=== PATIENT | male | born 1985 | race American Indian/Alaskan Native ===

== ENCOUNTER 2017-09-05 12:56 | Emergency (ER) | payer MEDICAID ==
[2017-09-05 13:03] VITALS: RESP 18; BMI 18.1
--- NOTE | 2017-09-05 13:41 | ED PDOC ---
Arrival/HPI - General Chief Complaint: Headache Time Seen by Provider: 09/05/17 13:04 Historian: Patient EM Caveat: Acuity of Condition - History of Present Illness Narrative History of Present Illness (Text): 09/05/17 13:33 32 year old male, whose medical history includes GERD that is being medicated, presents to the Emergency department complaining of a headache for 2 days. 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 Patient states headache is worsened when he smokes and relieved when he rests. Patient notes that he was assessed by PMD, Dr. Adame, for left upper quadrant pain 2 days ago. An ultrasound was done to rule out renal stone; the results are not yet back. Patient states his headache began after the ultrasound. Patient also complains of neck and shoulder muscle tightness, described as a pressure rather than a pain, while at times he states that all the muscles in his body feel tight. Patient also complains of left ear tinnitus prior to onset of the headache. Patient denies any fever, chills, chest pain, shortness of breath, nausea, vomiting, diarrhea, vision changes, back pain, joint pain, or any other complaints. Time/Duration: < week (2 days) Symptom Onset: Sudden Symptom Course: Unchanged Severity Level: 1 Context: Home Past Medical History - Provider Review Nursing Documentation Reviewed: Yes - Travel History Have you recently traveled outside [place] w/in the past 3 mons?: No - Infectious Disease Hx of Infectious Diseases: None - Gastrointestinal Hx Gastroesophageal Reflux: Yes - Psychiatric Hx Substance Use: No - Surgical History Hx Musculoskeletal Surgery: Yes (Right middle finger) Family/Social History - Physician Review Nursing Documentation Reviewed: Yes Family/Social History: No Known Family HX Smoking Status: Heavy Smoker > 10 Cigarettes Daily Hx Alcohol Use: No Hx Substance Use: Yes (occasional marijuana use) Allergies/Home Meds Allergies/Adverse Reactions: Allergies No Known Allergies Allergy (Verified 09/05/17 13:05) Review of Systems - Physician Review All systems were reviewed & negative as marked: Yes - Review of Systems Constitutional: absent: Fevers, Night Sweats Eyes: absent: Vision Changes ENT: Tinnitus (left ear) Respiratory: absent: SOB Cardiovascular: absent: Chest Pain Gastrointestinal: absent: Diarrhea, Nausea, Vomiting Musculoskeletal: Other (muscle tightness/pressure primarily in neck and shoulders). absent: Back Pain Neurological: Headache Physical Exam Vital Signs Reviewed: Yes Vital Signs Temp Pulse Resp BP Pulse Ox 09/05/17 16:00 98.5 F 70 18 110/78 98 09/05/17 15:03 98.5 F 58 L 18 118/76 100 09/05/17 13:03 98.7 F 61 18 122/68 100 Temperature: Afebrile Blood Pressure: Normal Pulse: Regular Respiratory Rate: Normal Appearance: Positive for: Well-Appearing, Non-Toxic, Comfortable Pain Distress: None Mental Status: Positive for: Alert and Oriented X 3 - Systems Exam Head: Present: Atraumatic, Normocephalic Pupils: Present: PERRL Extroacular Muscles: Present: EOMI Conjunctiva: Present: Normal Mouth: Present: Moist Mucous Membranes Neck: Present: Paraspinal Tenderness (cervical region) Respiratory/Chest: Present: Clear to Auscultation, Good Air Exchange. No: Respiratory Distress, Accessory Muscle Use Cardiovascular: Present: Regular Rate and Rhythm, Normal S1, S2. No: Murmurs Abdomen: No: Tenderness, Distention, Peritoneal Signs Back: Present: Normal Inspection Upper Extremity: Present: Other (Hypersensitivity of upper trapezius). No: Edema Lower Extremity: Present: Normal Inspection. No: Edema Neurological: Present: GCS=15, CN II-XII Intact, Speech Normal Skin: Present: Warm, Dry, Normal Color. No: Rashes Psychiatric: Present: Alert, Oriented x 3, Normal Insight, Normal Concentration Medical Decision Making ED Course and Treatment: 09/05/17 13:46 Impression: 32 year old male presents to the Emergency department complaining of a headache , left ear tinnitus, and muscle tightness. Plan: -- Muscle relaxant -- Reassess and disposition Progress Notes: CT head: IMPRESSION: No acute findings Toradol 30 mg IM for tension headache Stable and ready for home 09/05/17 15:52 Cyclobenzaprine 5 mg prn - Lab Interpretations Lab Results: 09/05/17 14:20 09/05/17 14:20 Lab Results 09/05/17 14:20: Sodium 145, Potassium 4.0, Chloride 107, Carbon Dioxide 26, Anion Gap 15, BUN 16, Creatinine 0.8, Est GFR ( Amer) > 60, Est GFR (Non- Af Amer) > 60, Random Glucose 83, Calcium 9.5, Total Bilirubin 0.2, AST 28, ALT 27, Alkaline Phosphatase 45, Total Protein 7.5, Albumin 4.4, Globulin 3.0, Albumin/Globulin Ratio 1.5 09/05/17 14:20: Urine Color Yellow, Urine Appearance Clear, Urine pH 6.0, Ur Specific [place] 1.025, Urine Protein Negative, Urine Glucose (UA) Negative, Urine Ketones Negative, Urine Blood Negative, Urine Nitrate Negative, Urine Bilirubin Negative, Urine Urobilinogen 0.2, Ur Leukocyte Esterase Negative 09/05/17 14:20: WBC 7.0, RBC 4.16, Hgb 12.9 L, Hct 38.3 L, MCV 92.1, MCH 31.0, MCHC 33.7, RDW 12.1, Plt Count 219, MPV 9.0, Gran % 60.4, Lymph % (Auto) 33.6, [place] % (Auto) 4.7, Eos % (Auto) 0.7 L, Baso % (Auto) 0.6, Gran # 4.20, Lymph # ( Auto) 2.3, Kern # (Auto) 0.3, Eos # (Auto) 0.1, Baso # (Auto) 0.04 - RAD Interpretation Radiology Orders: 09/05/17 14:04 HEAD W/O CONTRAST [CT] Stat - Medication Orders Current Medication Orders: Discontinued Medications Ketorolac Tromethamine (Toradol) 30 mg IM STAT STA Stop: 09/05/17 15:54 Last Admin: 09/05/17 16:15 Dose: Not Given Non-Admin Reason: Patient Refused - Scribe Statement The provider has reviewed the documentation as recorded by the Thang Uribe Provider Scribe Attestation: All medical record entries made by the Scottibdeangelo were at my direction and personally dictated by me. I have reviewed the chart and agree that the record accurately reflects my personal performance of the history, physical exam, medical decision making, and the department course for this patient. I have also personally directed, reviewed, and agree with the discharge instructions and disposition. Disposition/Present on Arrival - Present on Arrival Any Indicators Present on Arrival: Yes History of DVT/PE: No History of Uncontrolled Diabetes: No Urinary Catheter: No History of Decub. Ulcer: No History Surgical Site Infection Following: None - Disposition Have Diagnosis and Disposition been Completed?: Yes Diagnosis: Tension type headache, unspecified, Muscle tension headache Disposition: HOME/ ROUTINE Disposition Time: 15:54 Patient Plan: Discharge Condition: GOOD Discharge Instructions (ExitCare): Tension Headache Additional Instructions: Clara, thank you for letting us take care of you today. Your provider was EDWIN Villagomez. You were treated for Tension Headache. The emergency medical care you received today was directed at your acute symptoms. If you were prescribed any medication, please fill it and take as directed. It may take several days for your symptoms to resolve. Return to the Emergency Department if your symptoms worsen, do not improve, or if you have any other problems. Please contact your doctor or call one of the physicians/clinics you have been referred to that are listed on the Patient Visit Information form that is included in your discharge packet. Bring any paperwork you were given at discharge with you along with any medications you are taking to your follow up visit. Our treatment cannot replace ongoing medical care by a primary care provider (PCP) outside of the emergency department. Thank you for allowing the [facility] team to be part of your care today. If you had an X-Ray or CT scan: A Radiologist will review the ED reading if any change in treatment is needed we will contact you. If you had a blood, urine, or wound culture: It will take several days for the results, if any change in treatment is needed we will contact you. Prescriptions: Cyclobenzaprine [Flexeril] 5 mg PO Q8 5 Days #15 tab Referrals: Carrie Adame [Primary Care Provider] - Follow up with primary Forms: [employer] (E[place]ian), WORK NOTE
[2017-09-05 14:57] LABS: URINE BILIRUBIN NEGATIVE (NEGATIVE); URINE BLOOD NEGATIVE (NEGATIVE); URINE GLUCOSE (UA) NEGATIVE (NEGATIVE); URINE LEUKOCYTE ESTERASE NEGATIVE Leu/uL (NEGATIVE); URINE PROTEIN NEGATIVE mg/dL (<30 mg/dL); URINE UROBILINOGEN 0.2 E.U./dL (<1 E.U./dL)
[2017-09-05 14:58] LABS: BASO # 0.04 K/mm3 (0.0-2.0); BASO % 0.6 % (0.0-3.0); EOS # 0.1 (0.0-0.7); EOS % 0.7 % (1.5-5.0); GRAN # 4.2 (1.4-6.5); GRAN % 60.4 % (50.0-68.0); HEMOGLOBIN 12.9 g/dL (14.0-18.0); LYMPH # 2.3 (1.2-3.4); LYMPH % 33.6 % (22.0-35.0); MEAN CELL VOLUME 92.1 fl (80.0-105.0); MEAN CORPUSCULAR HGB CONC 33.7 g/dl (31.0-37.0); MONO # 0.3 (0.1-0.6); MONO % 4.7 % (1.0-6.0); RBC 4.16 10^6/uL (3.5-6.1); RED CELL DISTRIBUTION WIDTH 12.1 % (11.5-14.5)
[2017-09-05 15:00] LABS: URINE APPEARANCE CLEAR (CLEAR); URINE COLOR YELLOW (YELLOW)
[2017-09-05 15:09] LABS: ALB/GLOB RATIO 1.5 (1.1-1.8); ALBUMIN 4.4 g/dL (3.0-4.8); ALT/SGPT 27 U/L (7-56); AST/SGOT 28 U/L (17-59); BLOOD UREA NITROGEN 16 mg/dL (7-21); CALCIUM 9.5 mg/dL (8.4-10.5); GFR AFRICAN-AMERICAN > 60; GFR NON-AFRICAN AMERICAN > 60
--- NOTE | 2017-09-05 15:13 | CT ---
PROCEDURE: CT HEAD WITHOUT CONTRAST. HISTORY: Headache COMPARISON: None available. TECHNIQUE: Axial computed tomography images were obtained through the head/brain without intravenous contrast. Radiation dose: Total exam DLP = 928 mGy-cm. This CT exam was performed using one or more of the following dose reduction techniques: Automated exposure control, adjustment of the mA and/or kV according to patient size, and/or use of iterative reconstruction technique. FINDINGS: HEMORRHAGE: No intracranial hemorrhage. BRAIN: No mass effect or edema. No atrophy or chronic microvascular ischemic changes. VENTRICLES: Unremarkable. No hydrocephalus. CALVARIUM: Unremarkable. PARANASAL SINUSES: Unremarkable as visualized. No significant inflammatory changes. MASTOID AIR CELLS: Unremarkable as visualized. No inflammatory changes. OTHER FINDINGS: None. IMPRESSION: No acute findings
[2017-09-05 15:52] VITALS: TEMP 98.5
[2017-09-05 16:18] VITALS: BP 110/78; PULSE 70; O2SAT 98
== END 2017-09-05 16:19 | disposition home or self-care (01) ==
LOC: ED 12:56
DX: G44.209 Tension-type headache, unspecified, not intractable (principal)